=== PATIENT | female | born 2000 | race Caucasian/White ===

== ENCOUNTER 2019-03-16 16:19 | Emergency (ER) | payer BC ==
--- NOTE | 2019-03-16 17:12 | EDPHY ---
H & P Time Seen by Provider: 03/16/19 16:39 HPI/ROS: CHIEF COMPLAINT: Eyelid droop HISTORY OF PRESENT ILLNESS: Patient is a 18-year-old female who presents emergency department with right eyelid droop. Patient's symptoms started 5 days ago. She feels they were fairly gradual in onset. The patient denies any other focal deficits. No visual change. No neck pain. No rash. No fever. No recent illnesses. She does report that she had a right-sided headache multiple times over the past few days but currently has no headache symptoms. Patient denies any trauma. She has had no previous history of neurologic disease. REVIEW OF SYSTEMS: 10 systems were reveiwed and are negative with the exception of the elements mentioned in the history of present illness. Past Medical/Surgical History: Negative Past surgical history: Negative Social history: Patient does not smoke Smoking Status: Never smoked Physical Exam: Vitals noted GENERAL: Well-appearing, in no acute distress, alert. HEENT: Eyes normal to inspection, normal pharynx, no signs of dehydration. No rash. NECK: Normal, supple. RESPIRATORY: Clear to auscultation bilaterally, no rales, rhonchi or wheezing. CVS: Regular rate and rhythm, no rubs, murmurs, or gallops. ABDOMEN: Soft, nontender, nondistended, no organomegaly. BACK: Normal to inspection, no CVA tenderness. SKIN: Normal color, no rash, warm, dry. No pallor. EXTREMITIES: No pedal edema, no calf tenderness, no Homans sign or cords, no joint swelling. NEURO/PSYCH: Higher functions: Alert and Oriented x3. Normal speech and cognition. Normal mood and affect. Cranial nerves: Patient has slight droop of the right eyelid. The patient's eyebrow function appears normal. No other cranial nerve deficits. Cerebellar: Normal as tested. Good finger to nose, good [id number], normal gait. Peripheral exam: Normal motor exam. Normal sensation. Normal reflexes. Constitutional: Initial Vital Signs Temperature (C) 37.3 C 03/16/19 16:22 Heart Rate 83 03/16/19 16:22 Respiratory Rate 18 03/16/19 16:22 Blood Pressure 136/79 H 03/16/19 16:22 O2 Sat (%) 98 03/16/19 16:22 O2 Delivery Mode Room Air Allergies/Adverse Reactions: No Known Allergies Allergy (Unverified 03/16/19 16:22) Home Medications: Medication Instructions Recorded Santa 03/16/19 Valacyclovir HCl [Valtrex] 1,000 mg PO TID #21 tab 03/16/19 predniSONE 60 mg PO DAILY 7 Days tab 03/16/19 Medical Decision Making ED Course/Re-evaluation: In the emergency department I discussed possible etiologies with the patient and mother. I answered all her questions. Neurology was paged. Dr. Humphrey recommended noncontrast head CT. He did not feel the patient an MRI from the emergency department. 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 I discussed this plan with the patient. I answered all her questions. She consented to head CT. Head CT: Please refer the dictated report. No acute disease noted. Discussed the results with the patient. I answered all her questions. She was given warnings prior to leaving. She will return with worsening symptoms. She will follow up with work. She was also given contact information for Dr. Humphrey Differential Diagnosis: My differential includes but is not limited to MS, Fairbanks's palsy, ischemic CVA, hemorrhagic CVA, dissection, aneurysm Departure - Departure Disposition: Home, Routine, Self-Care Clinical Impression: Facial droop Condition: Good Instructions: Fairbanks Palsy (ED) Additional Instructions: Take your prescriptions as directed. Return to the emergency department with worsening symptoms. Call neurology to make the next available appointment for recheck. Referrals: Dennis Humphrey MD [Medical Doctor] - 5-7 days, call for appt. Prescriptions: predniSONE 60 mg PO DAILY 7 Days tab Valacyclovir HCl [Valtrex] 1,000 mg PO TID #21 tab
[2019-03-16 18:16] VITALS: BP 103/73
== END 2019-03-16 18:11 | disposition home or self-care (01) ==
DX: G51.0 Bell's palsy (principal)